=== PATIENT | female | born 1980 | race Caucasian/White ===

== ENCOUNTER → 2017-10-22 | Outpatient (CLI) | payer OTHER ==
[~2017-10-22] MED LIST: ALBU90OI INH; AMLO5; AZIT500 PO; Allergy Relief10 M1 PO; Amitriptyline H25 MG; BCP; CETI5; CYCL10 PO; Cipro500 MG PO; Cranberry500 M1; Depo-Prove150 MG/11 IM; ERYT.5TO OD; Flagyl500 MG PO; GABA100; GABA100 PO; Gas-X125 MG PO; Glucosamine-MS1 EAC1 PO; HYDACE5 PO; HYDHOMSY PO; Hawthorn Berry500 MG; LABE100 PO; LISHYD2025; LOPE2C PO; LORA1SY PO; Lisinopril2.5 MG; MEDR150I IM; MULVITMINE PO; Magnesium Gluc500 MG PO; NAPR500; NORT10 PO; OMEP20ER PO; OMEP40CA12 PO; OXYACE5T PO; PANT20; PANT40; PHENA200 PO; POTA10T; PROM25 PO; Pepto-Bismol262 MG PO; Percocet 5-3251 EACH PO; RANI150 PO; RXHYDACE PO; RXPHEN200 PO; RXSULTRIDS PO; SUCR1 PO; SUCR1SU; SULTRIDS PO; TRAM50 PO; Zofran Odt4 MG PO; [UNRECOGNIZED DRUG - CODE]
[2017-10-22 12:20] LABS: Source, Urine Clean Catch
[2017-10-22 13:41] LABS: Appearance, Urine Hazy (Clear); Bilirubin, Urine Neg (Neg); Blood, Urine Neg (Neg); Color, Urine Yellow (P-Yellow); Glucose Qualitative, Urine Neg (Neg); Ketones, Urine Neg (Neg); Leukocyte Esterase, Urine 1+ (Neg); Nitrite, Urine Neg (Neg); Protein, Urine 2+ (Neg); Specific Gravity, Urine 1.015 (1.003-1.022); Urobilinogen, Urine NORM (Normal)
[2017-10-22 14:42] LABS: Bacteria Not Seen /hpf; Calcium Oxalate Crystals Mod /hpf; Red Blood Cells, Urine Not Seen /hpf (0-2); Squamous Epithelial Cells Mod /hpf (Few); White Blood Cells, Urine 0-2 /hpf (0-5)
== END ==
LOC: LAB SHORT 12:17 → LAB UCHC 12:17
PROVIDERS: Registered Nurse Community Health
DX: R10.2 Pelvic and perineal pain (principal); R39.89 Other symptoms and signs involving the genitourinary system
CPT/HCPCS: 81001; 87086

== ENCOUNTER 2018-04-30 08:03 | Observation (INO) | payer OTHER ==
[~2018-04-30] VITALS: Ht 172.7 cm; Wt 81.0 kg
[2018-04-30 08:40] LABS: BASOPHILS ABSOLUTE AUTO 0.06 K/mm3 (0.00-0.23); BASOPHILS PERCENT AUTO 1 % (0-2); EOSINOPHILS ABSOLUTE AUTO 0.17 K/mm3 (0.00-0.68); EOSINOPHILS PERCENT AUTO 2 % (0-6); IMMATURE GRAN ABSOLUTE AUTO 0.02 K/mm3 (0.00-0.10); IMMATURE GRAN PERCENT AUTO 0 % (0-1); LYMPHOCYTES ABSOLUTE AUTO 2.02 K/mm3 (0.84-5.20); LYMPHOCYTES PERCENT AUTO 24 % (21-46); MONOCYTES PERCENT AUTO 8 % (4-13); Mean Corpuscular HGB 29.7 pg (26.0-34.0); Mean Corpuscular HGB Conc 32.5 g/dL (31.5-36.5); Mean Corpuscular Volume 92 fL (80-100); Mean Platelet Volume 10.5 fL (9.1-12.4); NEUTROPHILS ABSOLUTE AUTO 5.55 K/mm3 (1.96-9.15); NEUTROPHILS PERCENT AUTO 65 % (41-73); Platelet Count 318 K/mm3 (150-400); RDW Coefficient Variation 12.4 % (11.7-14.2); RDW Standard Deviation 41.2 fL (35.1-46.3); Red Blood Cell Count 4.37 M/mm3 (3.80-5.20); White Blood Cell Count 8.52 K/mm3 (4.00-11.30)
[2018-04-30 08:59] LABS: Alanine Aminotransfer (ALT/SGP 35 U/L (12-78); Albumin, Blood 3.8 g/dL (3.4-5.0); Alk Phos 67 U/L (50-136); Anion Gap 7 mmol/L (6-16); Aspartate Aminotrans (AST/SGOT 20 U/L (12-37); Bilirubin, Total 0.4 mg/dL (0.1-1.0); Blood Urea Nitrogen 11 mg/dL (8-24); Bun/Creatinine Ratio 12.9 (12.0-20.0); CO2, Blood 26 mmol/L (21-32); Calcium, Blood 9.1 mg/dL (8.5-10.1); Chloride, Blood 107 mmol/L (98-108); Creatinine, Blood 0.85 mg/dL (0.40-1.00); Ethanol (Alcohol), Blood, Med <3 mg/dL; Free Thyroxine 1.07 ng/dL (0.70-1.60); Globulin, Blood 3.8 g/dL (2.2-4.0); Glomerular Filtration Rate >60 (60-); Glucose, Blood 76 mg/dL (70-99); Potassium, Blood 3.1 mmol/L (3.5-5.5); Salicylate <1.7 mg/dL (2.8-20.0); Sodium, Blood 140 mmol/L (136-145); Total Protein, Blood 7.6 g/dL (6.4-8.2)
[2018-04-30 09:04] LABS: Acetaminophen, Random <2.0 ug/mL (10.0-30.0)
[2018-04-30 09:22] LABS: Source, Urine Clean Catch
[2018-04-30 09:26] LABS: Bilirubin, Urine Neg (Neg); Blood, Urine Neg (Neg); Glucose Qualitative, Urine Neg (Neg); Ketones, Urine Neg (Neg); Leukocyte Esterase, Urine 1+ (Neg); Nitrite, Urine Pos (Neg); Protein, Urine 2+ (Neg); Specific Gravity, Urine 1.015 (1.003-1.022); Urobilinogen, Urine NORM (Normal)
[2018-04-30 09:50] LABS: U Amphetamine Screen DETECTED; U Barbituate Screen Not Detected; U Benzodiazapine Screen Not Detected; U Buprenorphine Screen Not Detected; U Cannabinoids Screen Not Detected; U Cocaine Screen Not Detected; U Methadone Screen Not Detected; U Methamphetamine Screen DETECTED; U Opiates Screen Not Detected; U Oxycodone Screen Not Detected; U Phencyclidine Screen Not Detected; U Propoxyphene Screen Not Detected
[2018-04-30 10:02] LABS: Appearance, Urine Hazy (Clear); Color, Urine Yellow (P-Yellow)
[2018-04-30 10:03] LABS: Bacteria Many /hpf; Red Blood Cells, Urine Not Seen /hpf (0-2); Squamous Epithelial Cells Not Seen /hpf (Few)
--- NOTE | 2018-04-30 12:00 | NUR ---
RECEIVED REPORT FROM ED RN AND ASSUMED CARE OF PATIENT. PT AMBULATES FROM STRETCHER TO BED WITHOUT ANY PROBLEMS. B/P IN 110'S SYSTOLICALLY UPON ARRIVAL. B/P DECREASING, RN DIANDRA TO CALL DR. MENDEZ FOR ORDERS. LR BOLUS ORDER RECEIVED AND STARTED.
--- NOTE | 2018-04-30 13:57 | NUR ---
HYPOTENSION PT HAS PERSISTENT HYPOTENSION DESPITE 3 LITERS TOTAL FLUID BOLUS SO FAR. CALL TO DR MENDEZ - ORDERS RECEIVED FOR AN ADDITIONAL 1L LR BOLUS AND TO START LEVOPHED, TITRATE TO MAX OF 4MCG/MIN DUE TO PERIPHERAL IV ACCESS ONLY.
--- NOTE | 2018-04-30 14:09 | NUR ---
UPDATE PROVIDED TO POISON CONTROL ON PT'S CONDITION. THEY RECOMMEND AGGRESSIVE TREATMENT OF BLOOD PRESSURE. DISCCUSED THE PLAN TO START LEVOPHED. THEY STATE TO CALL BACK IF MORE THAN 1 PRESSOR IS REQUIRED AND THE GLYCERIN OPERATOR WOULD BE AVAILABLE TO ASSIST WITH MEDICAL RECOMMENDATIONS.
--- NOTE | 2018-04-30 18:18 | NUR ---
DR. MENDEZ/IV ACCESS DR. MENDEZ CALLED TO CHECK ON PT. INFORMED THAT LEVOPHED CONTINUES AT 3MCG/MIN TO PIV. HE STATES THAT IF DOSE NEEDS TO BE INCREASED, NOC RN SHOULD CALL DR. DUBON (NIGHT TIME HOSPITALIST) TO PLACE CENTRAL LINE.
--- NOTE | 2018-04-30 18:46 | NUR ---
SHIFT SUMMARY: PT HAS BEEN SITTING UP IN BED RESTING. LEVOPHED CONTINUES AT 3 MCG/MIN IN LAC PIV AT THE YSITE. B/P SYSTOLICALLY RUNNING BETWEEN 96-102. LR RUNNING AT 150ML/HOUR. SITTER AT BEDSIDE WITH PATIENT IN CLEAR VIEW AT ALL TIMES PER SUICIDE PRECAUTIONS. PT EXPERIENCING DIARRHEA THIS AFTERNOON, SHE HAS BEEN ASYMPTOMATIC WITH THE LOW B/P, AND HAS BEEN GETTING UP TO TOLIET WITH 1 PERSON ASSIST. WILL CONTINUE TO MONITOR AND GIVE REPORT TO ONCOMING RN.
--- NOTE | 2018-04-30 19:25 | NUR ---
CARE ASSUMED REPORT RECEIVED, CARE ASSUMED. PT ALERT, TALKATIVE. DENIES PAIN/DISCOMFORT. LEVOPHED INFUSING TO LEFT AC PERIPHERAL IV AT 3 MCG/MIN, OK PER DR. MENDEZ. WILL CALL FOR CENTRAL LINE IF LEVOPHED NEEDS INCREASE. WILL TITRATE DOWN PT TOLERATES. VITALS STABLE, SEE FLOWSHEET. SEE SHIFT ASSESSMENT. PT REQUESTING SNACKS, PROVIDED.
--- NOTE | 2018-05-01 06:03 | NUR ---
SUMMARY THROUGHOUT NIGHT PT HAS TOLERATED TITRATION OF LEVOPHED AND HAS BEEN OFF SINCE 2300. SEE VITALS FLOWSHEET. NO EPISODES OF BRADYCARDIA, HR 60'S-70'S THROUGHOUT NIGHT. AFEBRILE. O2 SAT IN 90'S ON ROOM AIR, RESPIRATIONS EVEN AND UNLABORED. PT CALLING APPROPRIATELY FOR NEEDS. STAND BY ASSIST TO BATHROOM. PT ORIENTED, THOUGH DOES HAVE FLIGHT OF IDEA TYPE CONVERSATIONS AND APPEARS TO BE A POOR HISTORIAN SHE CONTRADICTS PREVIOUS CONVERSATIONS ABOUT HER HOME LIFE AND HEALTH HISTORY. PSYCH CONSULT IN PLACE. NO VISITORS OR PHONE CALLS THROUGHOUT NIGHT. SITTER IN PLACE FOR DURATION OF SHIFT.
--- NOTE | 2018-05-01 07:30 | NUR ---
PT SLEEPING SOUNDLY, AROUSES TO VOICE. C/O UTI SYMPTOMS; FREQUENCY, URGENCY, AND PAIN W URINATION. CX PENDING. PT DENIES SI TODAY AND IS HOPING TO GO HOME TODAY. PT PLEASANT AND COOPERATIVE. VSS. SITTER AT BEDSIDE
[2018-05-01 09:04] LABS: Anion Gap 9 mmol/L (6-16); Blood Urea Nitrogen 11 mg/dL (8-24); Bun/Creatinine Ratio 15.3 (12.0-20.0); CO2, Blood 24 mmol/L (21-32); Calcium, Blood 9.1 mg/dL (8.5-10.1); Chloride, Blood 108 mmol/L (98-108); Creatinine, Blood 0.72 mg/dL (0.40-1.00); Glomerular Filtration Rate >60 (60-); Glucose, Blood 90 mg/dL (70-99); Potassium, Blood 3.7 mmol/L (3.5-5.5); Sodium, Blood 141 mmol/L (136-145)
--- NOTE | 2018-05-01 10:35 | NUR ---
DR MENDEZ CALLED REGARDING NEG RODS IN URINE WITH PT COMPLAINTS OF URGENCY, INCREASED FREQUENCY, AND PAIN WITH URINATION. ANTIBIOTICS ORDERED. POSSIBLE DC HOME IF PSYCH CLEARS PT. TELE PSYCH ORDERED, PT DENIES SI. PT NOW MED W/O TELE. POISON CONTROLLED CALLED FOR UPDATE AND HAS CLOSED CASE.
--- NOTE | 2018-05-01 13:58 | NUR ---
TELEPSYCH INTERVIEW COMPLETE. UPDATE GIVEN TO ME VIA PHONE BY PSYCH MD. MD IS RECOMMENDING RELEASING HOLD/PRECAUSIONS, STARTING CYMBALTA 20MG PO QD, OUT PATIENT COUNSELING. THIS UPDATE GIVEN TO DR AGUSTIN, PT TO BE DISCHARGED HOME THIS AFTERNOON.
--- NOTE | 2018-05-01 15:08 | NUR ---
PT DC'D AT 1500 IN STABLE CONDITION. WEITTEN AND VERBAL DISCHARGE INFO GIVEN TO PT. PT STATES SHE HAS APPOINTMENT W PCP ON THE , PT AT THIS APPOINTMENT STATES SHE WILL TALK TO HER PCP ABOUT ANTIDEPRESSANTS AND COUNSELING. PT IS BEING DRIVEN HOME BY .
--- NOTE | 2018-05-01 19:27 | NUR ---
RX FOUND FROM DR GAUSTIN AFTER PT DC'D HOME FOR ROXANNE AND GUERLINE. MESSAGE LEFT ON PT'S PHONE TO CALL.
--- NOTE | 2018-05-02 11:11 | NUR ---
PT HAS NOT RETURNED MESSAGE TO CALL BACK. ATTEMPT X2 TODAY GOES STRAIGHT TO VOICE MAIL. MEDICATIONS FAXED TO [facility] THIS [facility]ARMACY IS LISTED HER PREFERRED PHARMACY. WILL HAVE STAFF ATTEMPT TO CONNACT PT TOMORROW BY PHONE, PHARMACY, PCP.
== END 2018-05-01 15:00 | disposition home or self-care (01) ==
LOC: ER 08:03 → ICUW 08:04 → ICUE 08:04
PROVIDERS: Emergency Medicine; ADMIT Internal Medicine
DX: T50.902A Poisoning by unspecified drugs, medicaments and biological substances, intentional self-harm, initial encounter (principal); E87.6 Hypokalemia; I95.9 Hypotension, unspecified; F15.10 Other stimulant abuse, uncomplicated; N39.0 Urinary tract infection, site not specified; I10 Essential (primary) hypertension; K21.9 Gastro-esophageal reflux disease without esophagitis; R51 Headache; G89.29 Other chronic pain; Q07.00 Arnold-Chiari syndrome without spina bifida or hydrocephalus; Z79.899 Other long term (current) drug therapy; Z79.2 Long term (current) use of antibiotics; Z88.1 Allergy status to other antibiotic agents; Z87.891 Personal history of nicotine dependence
CPT/HCPCS: 36415; 80048; 80053; 81001; 81025; 84439; 84443; 85025; 87077; 87086; 87186; 93005; 93010; 96360; 96361; 96365; 96375; 99285-25; G0378; G0480; J0696; J7030; J7060; J7120

== ENCOUNTER → 2018-05-13 | Outpatient (CLI) | payer OTHER | LOC: LAB UCHC 17:00 → LAB SHORT 17:00 | DX: N39.0 Urinary tract infection, site not specified (principal) | CPT/HCPCS: 87086 ==

== ENCOUNTER 2018-11-10 07:45 | Day surgery (SDC) | payer OTHER ==
[~2018-11-10] VITALS: Ht 167.6 cm; Wt 81.2 kg
[~2018-11-10 07:45] MED LIST changes: +AMLO10 PO; +ESCI10 PO; +LISI20 PO; +METO100 PO; +POTCHL20ER PO; +Prinivil10 MG PO; +SPIR25 PO
--- NOTE | 2018-11-10 08:41 | NUR ---
Ambulatory in Day Surgery History, Chart, Medications and Allergies reviewed before start of procedure.Lungs clear T/O to Auscultation. Patient states colon prep results clear. Patient confirms NPO status and agrees with scheduled surgery. Patient States Post-Procedure ride home has been arranged.PT HAS HISTORY OF CRANIOTOMY POOR SHORT TERM MEMORY. REPORTS 4/10 ABDOMINAL DISCOMFORT.
--- NOTE | 2018-11-10 08:58 | NUR ---
11/10/18 0858 Jose Carlos Arriola PATIENT DETERMINED TO BE ASA APPROPRIATE FOR PROPOFOL SEDATION PRIOR TO START OF PROCEDURE BY DR. Rafy Patiño Placed3-LEAD EKG REVIEWED WITH PHYSICIAN PRIOR TO START OF PROCEDURE.Patient to ENDO 1History, Chart, Medications and Allergies reviewed before start of procedure.MONITOR INTACT WITH CONTINUOUS PULSE OXIMETRY AND INTERMITTENT BP.O2 VIA N/C INTACT THROUGHOUT SEDATION/PROCEDURE.
--- NOTE | 2018-11-10 10:12 | NUR ---
Discharge instructions reviewed with patient. Patient verbalizes understanding. Copy given to patient to take home. Discharged via wheelchair to private car for ride home.
== END 2018-11-10 10:15 | disposition home or self-care (01) ==
LOC: ORSCMMR 07:45 → ORD 09:00 → ORSCMMR 09:00
PROVIDERS: Internal Medicine Gastroenterology
PROC: 0DB48ZX Excision of Esophagogastric Junction, Via Natural or Artificial Opening Endoscopic, Diagnostic (ICD-10-PCS; principal; 2018-11-10 09:00)
PROC: 0D758ZZ Dilation of Esophagus, Via Natural or Artificial Opening Endoscopic (ICD-10-PCS; principal; 2018-11-10 09:00)
PROC: 0DB58ZX Excision of Esophagus, Via Natural or Artificial Opening Endoscopic, Diagnostic (ICD-10-PCS; principal; 2018-11-10 09:00)
PROC: 0DB68ZX Excision of Stomach, Via Natural or Artificial Opening Endoscopic, Diagnostic (ICD-10-PCS; principal; 2018-11-10 09:00)
PROC: 0DBP8ZX Excision of Rectum, Via Natural or Artificial Opening Endoscopic, Diagnostic (ICD-10-PCS; principal; 2018-11-10 09:00)
DX: R13.14 Dysphagia, pharyngoesophageal phase (principal); K21.9 Gastro-esophageal reflux disease without esophagitis; Z86.010 Personal history of colon polyps; K29.70 Gastritis, unspecified, without bleeding; K62.1 Rectal polyp; I10 Essential (primary) hypertension; Z79.899 Other long term (current) drug therapy
CPT/HCPCS: 88305; 88312; 88342; C1726; J2704; J7120

== ENCOUNTER 2018-12-06 07:36 | Emergency (ER) | payer OTHER ==
[~2018-12-06] VITALS: Ht 165.1 cm; Wt 79.4 kg
[2018-12-06] MEDS ORDERED: PROM25 PO (08:01)
[2018-12-06 08:43] LABS: Source, Urine Clean Catch
[2018-12-06 08:52] LABS: BASOPHILS ABSOLUTE AUTO 0.05 K/mm3 (0.00-0.23); BASOPHILS PERCENT AUTO 1 % (0-2); EOSINOPHILS PERCENT AUTO 1 % (0-6); Hematocrit 32.8 % (33.0-51.0); Hemoglobin 10.6 g/dL (11.5-16.0); IMMATURE GRAN ABSOLUTE AUTO 0.06 K/mm3 (0.00-0.10); IMMATURE GRAN PERCENT AUTO 1 % (0-1); LYMPHOCYTES ABSOLUTE AUTO 1.05 K/mm3 (0.84-5.20); LYMPHOCYTES PERCENT AUTO 10 % (21-46); MONOCYTES PERCENT AUTO 8 % (4-13); Mean Corpuscular HGB 30.8 pg (26.0-34.0); Mean Corpuscular HGB Conc 32.3 g/dL (31.5-36.5); Mean Corpuscular Volume 95 fL (80-100); Mean Platelet Volume 10.3 fL (9.1-12.4); NEUTROPHILS ABSOLUTE AUTO 8.54 K/mm3 (1.96-9.15); NEUTROPHILS PERCENT AUTO 80 % (41-73); Platelet Count 269 K/mm3 (150-400); RDW Coefficient Variation 12.6 % (11.7-14.2); RDW Standard Deviation 43.8 fL (35.1-46.3); Red Blood Cell Count 3.44 M/mm3 (3.80-5.20)
[2018-12-06 08:54] LABS: Bilirubin, Urine Neg (Neg); Blood, Urine Neg (Neg); Glucose Qualitative, Urine Neg (Neg); Ketones, Urine Neg (Neg); Leukocyte Esterase, Urine 1+ (Neg); Nitrite, Urine Neg (Neg); Protein, Urine Neg (Neg); Urobilinogen, Urine 1+ (Normal)
[2018-12-06 09:06] LABS: Appearance, Urine Hazy (Clear); Color, Urine Yellow (P-Yellow)
[2018-12-06 09:07] LABS: Red Blood Cells, Urine 0-2 /hpf (0-2); Squamous Epithelial Cells Many /hpf (Few)
[2018-12-06 09:08] LABS: Bacteria Mod /hpf
[2018-12-06 09:09] LABS: Alanine Aminotransfer (ALT/SGP 108 U/L (12-78); Albumin/Globulin Ratio 0.8 (0.8-1.8); Alk Phos 121 U/L (50-136); Anion Gap 4 mmol/L (6-16); Aspartate Aminotrans (AST/SGOT 77 U/L (12-37); Bilirubin, Total 0.6 mg/dL (0.1-1.0); Blood Urea Nitrogen 8 mg/dL (8-24); Bun/Creatinine Ratio 12.9 (12.0-20.0); CO2, Blood 30 mmol/L (21-32); Calcium, Blood 8.8 mg/dL (8.5-10.1); Chloride, Blood 102 mmol/L (98-108); Creatinine, Blood 0.62 mg/dL (0.40-1.00); Glomerular Filtration Rate >60 (60-); Glucose, Blood 87 mg/dL (70-99); Potassium, Blood 3.9 mmol/L (3.5-5.5); Sodium, Blood 136 mmol/L (136-145)
[2018-12-06] MEDS ORDERED: Esgic Tablet1 EACH PO ×2 (10:16→10:17)
[2018-12-06] MEDS ORDERED: KETO10 PO (10:16)
[2018-12-06] MEDS ORDERED: ONDA4ODT MM (10:16)
== END 2018-12-06 10:22 | disposition home or self-care (01) ==
LOC: ER 07:36
PROVIDERS: Emergency Medicine
DX: R51 Headache (principal); Z98.1 Arthrodesis status; Z88.8 Allergy status to other drugs, medicaments and biological substances; Z79.899 Other long term (current) drug therapy; I10 Essential (primary) hypertension
CPT/HCPCS: 36415; 80053; 81001; 81025; 85025; 87086; 96374; 96375; 99284-25; J0780; J1170; J1200; J1885

== ENCOUNTER → 2022-08-14 | Outpatient (CLI) | payer OTHER ==
[~2022-08-14] MED LIST changes: +Esgic Tablet1 EACH PO; +KETO10 PO; +ONDA4ODT MM
== END | disposition home or self-care (01) ==
LOC: LAB 14:35 → LAB SHORT 14:35
DX: R46.89 Other symptoms and signs involving appearance and behavior (principal)
CPT/HCPCS: 87077; 87086; 87186

== ENCOUNTER → 2023-01-05 | Outpatient (CLI) | payer OTHER ==
[2023-01-07 14:09] LABS: HPV 16 Negative (Negative); HPV 18 Negative (Negative); HPV OTHER HR TYPES Positive (Negative)
[2023-01-08 12:07] LABS: CHLAMYDIA BY NAA Negative (Negative); GONOCOCCUS BY NAA Negative (Negative); TRICH VAG BY NAA Negative (Negative)
== END ==
LOC: LAB SHORT 15:21 → LAB 15:21
PROVIDERS: Registered Nurse Community Health
DX: Z12.4 Encounter for screening for malignant neoplasm of cervix (principal); Z11.3 Encounter for screening for infections with a predominantly sexual mode of transmission; N89.8 Other specified noninflammatory disorders of vagina
CPT/HCPCS: 87070; 87077; 87186; 87205; 87491; 87591; 87624; 87661; G0145

== ENCOUNTER → 2023-05-27 | Outpatient (CLI) | payer OTHER | END | disposition home or self-care (01) | LOC: LAB SHORT 08:38 → LAB 08:38 | DX: D06.9 Carcinoma in situ of cervix, unspecified (principal) | CPT/HCPCS: 88305 ==

== ENCOUNTER → 2024-02-03 | Outpatient (CLI) | payer OTHER ==
[~2024-02-03] MED LIST changes: +ACETAMINOPHEN500 M2 PO; +ALBUTEROL0.63 MG/3 IH; +FLUTICASONE PRO16 GM; +LOSARTAN-HCTZ1 EACH PO; +NAPROXEN500 MG PO; +PROPRANOLOL HCL80 MG PO
[2024-02-04 12:13] LABS: Chlamydia Trachomatis Vaginal NOT DETECTED (NOT DETECT); Neisseria Gonorrhoea Vaginal NOT DETECTED (NOT DETECT)
[2024-02-06 15:16] LABS: APTIMA MEDIA TYPE Urine; C. TRACHOMATIS BY TMA Negative (Negative); N. GONORRHOEAE BY TMA Negative (Negative); SPECIMEN SOURCE Urine
== END | disposition home or self-care (01) ==
LOC: LAB SHORT 16:37 → LAB 16:37
PROVIDERS: Physician Assistant
DX: Z11.59 Encounter for screening for other viral diseases (principal)
CPT/HCPCS: 87491; 87591

== ENCOUNTER → 2024-06-23 | Outpatient (CLI) | payer OTHER ==
[2024-06-23 16:10] LABS: BASOPHILS ABSOLUTE AUTO 0.06 K/mm3 (0.00-0.23); BASOPHILS PERCENT AUTO 1 % (0-2); EOSINOPHILS ABSOLUTE AUTO 0.08 K/mm3 (0.00-0.68); EOSINOPHILS PERCENT AUTO 1 % (0-6); Hematocrit 39.1 % (33.0-51.0); Hemoglobin 13.1 g/dL (11.5-16.0); IMMATURE GRAN ABSOLUTE AUTO 0.02 K/mm3 (0.00-0.10); IMMATURE GRAN PERCENT AUTO 0 % (0-1); LYMPHOCYTES ABSOLUTE AUTO 1.62 K/mm3 (0.84-5.20); LYMPHOCYTES PERCENT AUTO 21 % (21-46); MONOCYTES ABSOLUTE AUTO 0.48 K/mm3 (0.16-1.47); MONOCYTES PERCENT AUTO 6 % (4-13); Mean Corpuscular HGB 30.7 pg (26.0-34.0); Mean Corpuscular HGB Conc 33.5 g/dL (31.5-36.5); Mean Corpuscular Volume 92 fL (80-100); NEUTROPHILS ABSOLUTE AUTO 5.46 K/mm3 (1.96-9.15); NEUTROPHILS PERCENT AUTO 71 % (41-73); Platelet Count 260 K/mm3 (150-400); RDW Coefficient Variation 12.5 % (11.7-14.2); RDW Standard Deviation 41.4 fL (35.1-46.3); Red Blood Cell Count 4.27 M/mm3 (3.80-5.20); White Blood Cell Count 7.72 K/mm3 (4.00-11.30)
[2024-06-23 19:51] LABS: Iron Serum 119 ug/dL (50-170); Magnesium, Blood 2.1 mg/dL (1.6-2.4); Very Low Density Lipoprot Chol 9 mg/dL (6-32)
[2024-06-23 20:13] LABS: Alanine Aminotransfer (ALT/SGP 38 U/L (12-78); Albumin, Blood 4.2 g/dL (3.4-5.0); Alk Phos 81 U/L (50-136); Anion Gap 16 mmol/L (3-11); Aspartate Aminotrans (AST/SGOT 28 U/L (12-37); Bilirubin, Total 0.7 mg/dL (0.1-1.0); Blood Urea Nitrogen 17 mg/dL (8-24); CHOL/HDL RATIO 2.4; CO2, Blood 25 mmol/L (21-32); Calcium, Blood 9.3 mg/dL (8.5-10.1); Chloride, Blood 101 mmol/L (98-108); Cholesterol 199 mg/dL (50-200); Creatinine, Blood 0.74 mg/dL (0.40-1.00); Ferritin, Serum 34 ng/mL (8-252); Globulin, Blood 4.2 g/dL (2.2-4.0); Glomerular Filtration Rate 103 (60-); Glucose, Blood 93 mg/dL (70-99); HDL Cholesterol 82 mg/dL (>39); LDL/HDL RATIO 1.3; Low Density Lipoprotein Chol 108 mg/dL (0-110); Percent Saturation 25.2 % (15.0-50.0); Potassium, Blood 3.7 mmol/L (3.5-5.5); Sodium, Blood 138 mmol/L (136-145); Total Iron Binding Capacity 472 ug/dL (250-450); Total Protein, Blood 8.4 g/dL (6.4-8.2); Triglycerides 47 mg/dL (30-160)
[2024-06-27 12:02] LABS: HEPATITIS A ANTIBODY, IGM Negative (Negative); HEPATITIS B CORE ANTIBODY, IGM Negative (Negative); HEPATITIS B SURFACE ANTIGEN Negative (Negative); HEPATITIS C AB CIA INTERP Negative (Negative); HEPATITIS C ANTIBODY CIA INDEX 0.07 IV
== END ==
LOC: LAB SHORT 14:53 → LAB 14:53
PROVIDERS: Family Medicine
DX: D64.9 Anemia, unspecified (principal); Z79.899 Other long term (current) drug therapy; Z11.59 Encounter for screening for other viral diseases
CPT/HCPCS: 80053; 80061; 80074; 82306; 82728; 83036; 83540; 83550; 83735; 84443; 85025

== ENCOUNTER → 2024-09-15 | Outpatient (CLI) | payer OTHER ==
[2024-09-16 12:24] LABS: Chlamydia Trachomatis Urine NOT DETECTED (NOT DETECT); Neisseria Gonorrhoea Urine NOT DETECTED (NOT DETECT)
== END ==
LOC: LAB 10:20 → LAB SHORT 10:20
PROVIDERS: Family Medicine
DX: Z72.51 High risk heterosexual behavior (principal)
CPT/HCPCS: 87491; 87591

== ENCOUNTER → 2024-11-16 | Outpatient (CLI) | payer OTHER ==
[2024-11-17 09:30] LABS: BASOPHILS ABSOLUTE AUTO 0.08 K/mm3 (0.00-0.23); BASOPHILS PERCENT AUTO 1 % (0-2); EOSINOPHILS ABSOLUTE AUTO 0.19 K/mm3 (0.00-0.68); EOSINOPHILS PERCENT AUTO 3 % (0-6); Hematocrit 40.4 % (33.0-51.0); Hemoglobin 13.0 g/dL (11.5-16.0); IMMATURE GRAN ABSOLUTE AUTO 0.03 K/mm3 (0.00-0.10); IMMATURE GRAN PERCENT AUTO 0 % (0-1); LYMPHOCYTES ABSOLUTE AUTO 2.08 K/mm3 (0.84-5.20); LYMPHOCYTES PERCENT AUTO 31 % (21-46); MONOCYTES ABSOLUTE AUTO 0.34 K/mm3 (0.16-1.47); MONOCYTES PERCENT AUTO 5 % (4-13); Mean Corpuscular HGB Conc 32.2 g/dL (31.5-36.5); Mean Corpuscular Volume 91 fL (80-100); NEUTROPHILS ABSOLUTE AUTO 4.05 K/mm3 (1.96-9.15); NEUTROPHILS PERCENT AUTO 60 % (41-73); NRBC ABSOLUTE 0.00 K/mm3 (0.00-0.02); NRBC Auto 0.0 /100 WBC (0.0-0.2); Platelet Count 287 K/mm3 (150-400); RDW Coefficient Variation 13.0 % (11.7-14.2); RDW Standard Deviation 43.1 fL (35.1-46.3)
[2024-11-19 08:17] LABS: HIV 1,2 COMBO ANTIGEN/ANTIBODY Negative (Negative)
[2024-11-19 09:02] LABS: HEPATITIS C AB CIA INTERP Negative (Negative); HEPATITIS C ANTIBODY CIA INDEX 0.02 IV
[2024-11-19 13:14] LABS: APTIMA MEDIA TYPE Urine; C. TRACHOMATIS BY TMA Negative (Negative); N. GONORRHOEAE BY TMA Positive (Negative)
== END | disposition home or self-care (01) ==
LOC: LAB 18:13 → LAB SHORT 18:13
PROVIDERS: Family Medicine
DX: D72.820 Lymphocytosis (symptomatic) (principal); Z72.51 High risk heterosexual behavior; R23.3 Spontaneous ecchymoses
CPT/HCPCS: 85025; 86592; 86803; 87389; 87491; 87591

== ENCOUNTER 2025-04-03 04:15 | Observation (INO) | payer OTHER ==
[2025-04-03] VITALS (21 sets, daily range): BP systolic 136–172; BP diastolic 79–109
[~2025-04-03] VITALS: Ht 165.1 cm; Wt 68.0 kg
[2025-04-03 04:59] LABS: BASOPHILS ABSOLUTE AUTO 0.06 K/mm3 (0.00-0.23); BASOPHILS PERCENT AUTO 1 % (0-2); EOSINOPHILS ABSOLUTE AUTO 0.17 K/mm3 (0.00-0.68); EOSINOPHILS PERCENT AUTO 2 % (0-6); Hematocrit 39.5 % (33.0-51.0); Hemoglobin 12.6 g/dL (11.5-16.0); IMMATURE GRAN ABSOLUTE AUTO 0.03 K/mm3 (0.00-0.10); IMMATURE GRAN PERCENT AUTO 0 % (0-1); LYMPHOCYTES ABSOLUTE AUTO 1.65 K/mm3 (0.84-5.20); LYMPHOCYTES PERCENT AUTO 15 % (21-46); MONOCYTES ABSOLUTE AUTO 0.51 K/mm3 (0.16-1.47); MONOCYTES PERCENT AUTO 5 % (4-13); Mean Corpuscular HGB Conc 31.9 g/dL (31.5-36.5); Mean Corpuscular Volume 93 fL (80-100); NEUTROPHILS ABSOLUTE AUTO 8.55 K/mm3 (1.96-9.15); NEUTROPHILS PERCENT AUTO 78 % (41-73); NRBC ABSOLUTE 0.00 K/mm3 (0.00-0.02); NRBC Auto 0.0 /100 WBC (0.0-0.2); Platelet Count 228 K/mm3 (150-400); RDW Coefficient Variation 12.7 % (11.7-14.2); RDW Standard Deviation 43.4 fL (35.1-46.3)
[2025-04-03 05:08] LABS: Source, Urine Clean Catch
[2025-04-03 05:10] LABS: Glucose Qualitative, Urine Neg (Neg); Ketones, Urine Neg (Neg); Leukocyte Esterase, Urine 1+ (Neg); Protein, Urine 2+ (Neg); Specific Gravity, Urine 1.020 (1.003-1.022); Urobilinogen, Urine 1+ (Normal)
[2025-04-03 05:24] LABS: Color, Urine Yellow (P-Yellow)
[2025-04-03 05:31] LABS: Ethanol (Alcohol), Blood, Med <3 mg/dL; Magnesium, Blood 2.2 mg/dL (1.6-2.4); Salicylate <1.7 mg/dL (2.8-20.0)
[2025-04-03 05:39] LABS: Bilirubin, Urine 1+ (Neg)
[2025-04-03 05:46] LABS: Red Blood Cells, Urine 0-2 /hpf (0-2)
[2025-04-03] MEDS ORDERED: FLU VACC TS2025-26(6MOS UP)/PF 45 MCG/0.5 ML SYRINGE IM SCH (06:05)
[2025-04-03 06:22] LABS: Alanine Aminotransfer (ALT/SGP 28 U/L (12-78); Albumin, Blood 3.6 g/dL (3.4-5.0); Albumin/Globulin Ratio 0.9 (0.8-1.8); Anion Gap 8 mmol/L (3-11); Aspartate Aminotrans (AST/SGOT 29 U/L (12-37); Bilirubin, Total 0.3 mg/dL (0.1-1.0); Blood Urea Nitrogen 27 mg/dL (8-24); CO2, Blood 24 mmol/L (21-32); Calcium, Blood 8.6 mg/dL (8.5-10.1); Chloride, Blood 108 mmol/L (98-108); Creatinine, Blood 0.87 mg/dL (0.40-1.00); Globulin, Blood 4.1 g/dL (2.2-4.0); Glucose, Blood 133 mg/dL (70-99); Potassium, Blood 5.2 mmol/L (3.5-5.5); Sodium, Blood 135 mmol/L (136-145); Total Protein, Blood 7.7 g/dL (6.4-8.2)
[2025-04-03 06:23] LABS: Acetaminophen, Random <2.0 ug/mL (10.0-30.0)
[2025-04-03 06:42] LABS: U Amphetamine Screen DETECTED; U Barbiturate Screen Not Detected; U Benzodiazapine Screen Not Detected; U Buprenorphine Screen Not Detected; U Cannabinoids Screen Not Detected; U Cocaine Screen Not Detected; U Methadone Screen Not Detected; U Methamphetamine Screen DETECTED; U Opiates Screen Not Detected; U Oxycodone Screen Not Detected; U Phencyclidine Screen Not Detected
--- NOTE | 2025-04-03 08:30 | NUR ---
ASSUMPTION OF CARE ASSUMED CARE OF PATIENT AT APPROX 0830. PATIENT A&OX4 AND ABLE TO MAKE NEEDS KNOWN. NO FOCAL DEFICITS. PATIENT DOES APPEAR TO BE MANIC. HR SINUS IN THE 60S. PATIENT IS HYPERTENSIVE WITH SBP IN THE 130S-140S. PATIENT ON RA WITH SPO2 >96%. PATIENT IS UP WITH NURSE ASSIST TO TOILET FOR VOIDING. L/S CLEAR. 1:1 SITTER AT BEDSIDE FOR HIGH SI. BED IN LOWEST POSITION.
[2025-04-03 08:38] LABS: Alanine Aminotransfer (ALT/SGP 61.0 U/L (12-78); Albumin, Blood 3.3 g/dL (3.4-5.0); Albumin/Globulin Ratio 0.9 (0.8-1.8); Anion Gap 5.0 mmol/L (3-11); Aspartate Aminotrans (AST/SGOT 68.0 U/L (12-37); Bilirubin, Total 0.3 mg/dL (0.1-1.0); Blood Urea Nitrogen 27.0 mg/dL (8-24); CO2, Blood 29.0 mmol/L (21-32); Calcium, Blood 8.4 mg/dL (8.5-10.1); Chloride, Blood 105.0 mmol/L (98-108); Creatinine, Blood 0.81 mg/dL (0.40-1.00); Globulin, Blood 3.8 g/dL (2.2-4.0); Glucose, Blood 147.0 mg/dL (70-99); Potassium, Blood 4.2 mmol/L (3.5-5.5); Sodium, Blood 135.0 mmol/L (136-145); Total Protein, Blood 7.1 g/dL (6.4-8.2)
[2025-04-03] MEDS ORDERED: GABA300 PO (08:41)
[2025-04-03] MEDS ORDERED: OMEP20ER PO (08:42)
[2025-04-03 08:59] LABS: Albumin, Blood 3.3 g/dL (3.4-5.0); Anion Gap 9 mmol/L (3-11); Blood Urea Nitrogen 27 mg/dL (8-24); CO2, Blood 26 mmol/L (21-32); Calcium, Blood 8.3 mg/dL (8.5-10.1); Chloride, Blood 106 mmol/L (98-108); Creatinine, Blood 0.82 mg/dL (0.40-1.00); Glucose, Blood 146 mg/dL (70-99); Phosphorus, Blood 3.1 mg/dL (2.5-4.9); Potassium, Blood 4.2 mmol/L (3.5-5.5); Sodium, Blood 137 mmol/L (136-145)
[2025-04-03] MEDS ORDERED: Enoxaparin 40 MG/0.4 ML SYR SC SCH (09:00)
[2025-04-03 14:46] LABS: Alanine Aminotransfer (ALT/SGP 69 U/L (12-78); Albumin, Blood 3.5 g/dL (3.4-5.0); Albumin/Globulin Ratio 0.9 (0.8-1.8); Aspartate Aminotrans (AST/SGOT 55 U/L (12-37); Bilirubin, Direct <0.1 mg/dL (0.0-0.3); Bilirubin, Indirect Unable to Calculate mg/dL (0.1-0.7); Bilirubin, Total 0.4 mg/dL (0.1-1.0); Globulin, Blood 3.9 g/dL (2.2-4.0); Total Protein, Blood 7.4 g/dL (6.4-8.2)
[2025-04-03 15:15] LABS: Prothrombin Time Results 10.4 Sec (9.7-11.5)
--- NOTE | 2025-04-03 16:42 | NUR ---
UPDATE TALKED TO POISON CONTROL. THEY RECOMMEND NO MORE BLOOD SUGAR CHECKS AND RECHECK LIVER ENZYMES IN THE MORNING. SPOKE WITH DR TREVIZO. NEW ORDERS SUBMITTED.
--- NOTE | 2025-04-03 17:05 | NUR ---
SHIFT SUMMARY PATIENT A&OX4 AND ABLE TO MAKE NEEDS KNOWN. PATIENT ENDORSES HEARING HER BOYFRIENDS VOICE EVEN THOUGH HE IS NOT THERE, BUT SAYS SHE KNOWS IT IS NOT REAL. PATIENT CAN ANSWER ALL ORIENTATION QUESTIONS CORRECTLY DESPITE THIS. PATIENT HR SINUS IN THE 60S. SPB IN THE 130S-150S. PATIENT ON RA WITH SPO2 >96%. PATIENT UP WITH NURSE ASSIST TO VOID IN TOILET. NO BM THIS SHIFT. 1:1 SITTER AT BEDSIDE THROUGHOUT THE SHIFT. BED IN LOWEST POSITION.
[2025-04-03] MEDS ORDERED: LORazepam 2 MG/ML 1ML Injection IV SCH (19:05)
--- NOTE | 2025-04-03 19:29 | NUR ---
UPDATE PT BECOMING VERY UPSET NOC TEAM ARRIVED EXPRSSING HER DESIRE TO LEAVE THE HOSPITAL. DR. DUBON CONTACTED AND AN INVOLUNTARY HOLD WAS ORDERED. PT WAS READ HER CIVIL RIGHTS AT THE BEDSIDE. PT REQUESTING AN FRONT WINDOW CASHIER BUT REFUSED TO SIGN THE CIVIL RIGHTS FORM. REPORT GIVEN TO CLARA BURDICK AT BEDSIDE.
[2025-04-04] VITALS (7 sets, daily range): BP systolic 96–127; BP diastolic 61–83
[2025-04-04 03:19] LABS: BASOPHILS ABSOLUTE AUTO 0.04 K/mm3 (0.00-0.23); BASOPHILS PERCENT AUTO 1 % (0-2); EOSINOPHILS ABSOLUTE AUTO 0.14 K/mm3 (0.00-0.68); EOSINOPHILS PERCENT AUTO 2 % (0-6); Hematocrit 36.5 % (33.0-51.0); Hemoglobin 11.9 g/dL (11.5-16.0); IMMATURE GRAN ABSOLUTE AUTO 0.01 K/mm3 (0.00-0.10); IMMATURE GRAN PERCENT AUTO 0 % (0-1); LYMPHOCYTES ABSOLUTE AUTO 2.27 K/mm3 (0.84-5.20); LYMPHOCYTES PERCENT AUTO 29 % (21-46); MONOCYTES ABSOLUTE AUTO 0.56 K/mm3 (0.16-1.47); MONOCYTES PERCENT AUTO 7 % (4-13); Mean Corpuscular HGB Conc 32.6 g/dL (31.5-36.5); Mean Corpuscular Volume 93 fL (80-100); NEUTROPHILS ABSOLUTE AUTO 4.80 K/mm3 (1.96-9.15); NEUTROPHILS PERCENT AUTO 61 % (41-73); NRBC ABSOLUTE 0.00 K/mm3 (0.00-0.02); NRBC Auto 0.0 /100 WBC (0.0-0.2); Platelet Count 261 K/mm3 (150-400); RDW Coefficient Variation 12.8 % (11.7-14.2); RDW Standard Deviation 43.8 fL (35.1-46.3)
[2025-04-04 03:38] LABS: Alanine Aminotransfer (ALT/SGP 55.0 U/L (12-78); Albumin, Blood 3.3 g/dL (3.4-5.0); Albumin/Globulin Ratio 0.9 (0.8-1.8); Anion Gap 8.0 mmol/L (3-11); Aspartate Aminotrans (AST/SGOT 32.0 U/L (12-37); Bilirubin, Total 0.3 mg/dL (0.1-1.0); Blood Urea Nitrogen 23.0 mg/dL (8-24); CO2, Blood 27.0 mmol/L (21-32); Calcium, Blood 8.8 mg/dL (8.5-10.1); Chloride, Blood 109.0 mmol/L (98-108); Creatinine, Blood 0.75 mg/dL (0.40-1.00); Globulin, Blood 3.7 g/dL (2.2-4.0); Glucose, Blood 103.0 mg/dL (70-99); Potassium, Blood 4.1 mmol/L (3.5-5.5); Sodium, Blood 140.0 mmol/L (136-145); Total Protein, Blood 7.0 g/dL (6.4-8.2)
--- NOTE | 2025-04-04 05:13 | NUR ---
SHIFT SUMMARY: NEURO: PATIENT ALERT AND ORIENTED X4. PATIENT JUMPS FROM ONE TOPIC TO THE NEXT. SPEECH MUMBLED AT TIMES. PATIENT IS REDIRECTABLE, FOLLOWING DIRECTIONS AND ABLE TO MAKE HER NEEDS KNOWN. PATIENT REPORTEDS NUMBNESS/TINGLING IN HANDS AND FEET AT BASELINE. PATIENT MILDLY UNSTEADY ON HER FEET. RESPIRATORY: PATIENT STABLE ON ROOM AIR WITH SPO2 >97%. REPORTS SOME SHORTNESS OF BREATH AT BASELINE. NO SHORTNESS OF BREATH OR DISTRESS NOTED THIS EVENING. CARDIAC: WHEN AWAKE, PATIENT'S HR IN THE 60S. WHEN SLEEPING, PATIENT'S HR IN THE 50S. PATIENT DENIES CHEST PAIN/DISCOMFORT. BLOOD PRESSURES STABLE WITH MAPS >65. GI/: PATIENT DENIES NAUSEA/VOMITING. PATIENT TOLERATING PO INTAKE WITHOUT DISCOMFORT. PATIENT VOIDING WITHOUT DIFFICULTY. URINE IS A DARK YELLOW WITH FOUL ODOR. PSYCHSOCIAL: PATIENT IS ANXIOUS ABOUT HER DOG, TENT AND POSESSIONS. PATIENT REPORTS THAT SHE NEEDS TO LEAVE SOON POSSIBLE TODAY SO THAT SHE DOESN'T LOSE HER HOUSING. PATIENT REPORTS THAT SHE WILL LEAVE AMA AND PATIENT UNDERSTANDS THAT SHE IS CURRENTLY ON A HOLD. PATIENT HAS EXPERIENCED VISUAL AND AUDITORY HALLUCINATIONS THIS NIGHT. PATIENT ACCEPTING OF THE FACT THAT THESE ARE HALLUCINATIONS AFTER SPEAKING WITH STAFF. PATIENT DENIES CURRENT SUICIDAL IDEATION, HAVING A PLAN, AND ANY INTENT OF HURTING HERSELF WITH DISCHARGE. PATIENT REPORTS THAT SHE WAS HAVING A "REALLY HARD DAY". THROUGHOUT THE NIGHT, PATIENT CALM AND COOPERATIVE WITH THIS RN.
--- NOTE | 2025-04-04 07:15 | NUR ---
provider contact this rn spoke w dr. mendoza on the phone. provider expresing his intent on seeing and evaluating the pt this afternoon.
--- NOTE | 2025-04-04 08:57 | NUR ---
ASSUMPTION OF CARE ASSUMED CARE OF PATIENT AT APPROX 0700. PATIENT A&OX4 AND ABLE TO MAKE NEEDS KNOWN. HR SINUS IN THE 50S-60S. BP STABLE WITH MAPS >65. PATIENT ON RA WITH SPO2 >95%. 1:1 SITTER AT BEDSIDE. BED IN LOWEST POSITION.
--- NOTE | 2025-04-04 10:45 | NUR ---
UPDATE POISON CONTROL CONTACTED US THIS MORNING TO FOLLOW UP ON PATIENT CONDITION AND LABS. THEY ARE SIGNING OFF ON THE CASE. IF ANYTHING SHOULD CHANGE WITH THE PATIENTS CONDITION THEY SAID TO CONTACT THEM.
--- NOTE | 2025-04-04 14:06 | NUR ---
PATIENT TO ROOM VIA WHEELCHAIR AND ICU STAFF. PATIENT ALERT AND ORIENTED TO ROOM AND CALL LIGHT. SITTER PRESENT IN ROOM. TELE BOX CONFIRMED WITH TECH AND PATIENT ATTEMPTING TO SLEEP. CALL LIGT WITHIN REACH AND ENCOURAGED TO CALL FOR ASSISTANCE. 2 WHITE BELONGINGS BAGS TAKEN TO NURSES STATION WITH PATIENT BELONGINGS IN THEM.
--- NOTE | 2025-04-04 16:32 | NUR ---
DR. MATIAS CAME OUT OF ROOM AND WENT TO DESK REQUESTING DR. YUNG PHONE NUMBER. PT CALLED IMMEDIATELY AFTER PT LEFT STATING SHE WANTS TO SEE HER NURSE AND ALL THE NURSES IN ICU AND HER DR. RIGHT NOW BECAUSE SHE DOESN'T LIKE DR. MATIAS OR WHAT HE SAID AND SHE WANTS TO LEAVE SO SHE CAN GET A HOME AND THIS IS HER ONLY CHANCE. SPOKE WITH PRIMARY RN UPON RETURN FROM BREAK ABOUT PTS CONCERNS AND WHO SHE WANTS TO TALK TO. PT ALSO REQUESTING A SHOWER. SITTER AT BEDSIDE.
--- NOTE | 2025-04-05 03:18 | NUR ---
SHIFT SUMMARY: PT HAS BEEN QUIET, PLEASANT, AND COOPERATIVE THIS SHIFT. SHE REQUESTED TYLENOL FOR HEADACHE AT 1999 AND HAS BEEN SLEEPING THROUGH MOST OF THE SHIFT. SITTER IN ROOM WITH PT AT ALL TIMES. BED IN LOWEST POSITION, BEDSIDE TABLE AND CALL LIGHT WITHIN REACH.
[2025-04-05 03:32] VITALS: BP 124/74
[2025-04-05 07:34] VITALS: BP 102/66
[2025-04-05] MEDS ORDERED: HYDPAM50 (10:05)
--- NOTE | 2025-04-05 10:35 | NUR ---
REVIEWED DISCHARGE INSTRUCTIONS WITH PATIENT. NO MEDICATIONS SENT TO PHARMACY. PATIENT HAS HARD COPY SCRIPT TO TAKE TO PHARMACY. NO QUESTIONS OR CONCERNS.
== END 2025-04-05 11:37 | disposition home or self-care (01) ==
LOC: ER 04:15 → ICUE 04:16 → ERHOLD 04:16 → ICUE 04:16 → ER 04:16 → ICUE 04:17 → ERHOLD 08:29 → ICUE 08:29 → MEDS 04-04 13:46
PROVIDERS: Family Medicine; Student in an Organized Health Care Education/Training Program; ADMIT Student in an Organized Health Care Education/Training Program
DX: T44.7X2A Poisoning by beta-adrenoreceptor antagonists, intentional self-harm, initial encounter (principal); F34.1 Dysthymic disorder; I10 Essential (primary) hypertension; K76.0 Fatty (change of) liver, not elsewhere classified; F15.10 Other stimulant abuse, uncomplicated; F10.11 Alcohol abuse, in remission; Z59.02 Unsheltered homelessness; Z87.891 Personal history of nicotine dependence; Z88.8 Allergy status to other drugs, medicaments and biological substances; Z91.09 Other allergy status, other than to drugs and biological substances; Z90.49 Acquired absence of other specified parts of digestive tract
CPT/HCPCS: 36415; 80053; 80069; 80076; 80320; 81001; 81025; 82947; 83735; 85025; 85610; 87077; 87086; 87186; 99285-25; A9270; G0378; G0480; J2060